=== PATIENT | male | born 1950 | race Caucasian/White ===

== ENCOUNTER → 2019-01-07 | Outpatient (CLI) | payer MEDICARE, OTHER ==
--- NOTE | 2019-01-07 10:52 | RAD ---
Examination: CT LOW DOSE LUNG SCREENING History: Lung nodule Comparison/Correlation: 03/06/2016 CT chest without contrast and 09/18/2016 CT chest without contrast Findings: Axial images of chest were obtained without contrast according to low-dose protocol. Sagittal and coronal reformatted images were provided. Tracheal bronchial tree is most unremarkable. There is circumferential wall thickening of some of the lower lobe bronchi compatible with chronic bronchitis. Small groundglass opacity is present at the lateral right upper lung field on axial image 19 and this measures 1.1 cm x 0.8 cm x 0.3 cm longitudinal. At the left upper lung field, there is a 1.4 cm by 1 cm x 1 cm longitudinal groundglass opacity and this is best seen on axial image 21. There is a 0.4 cm diameter noncalcified nodule on axial image 19 at the left upper lung field level. Few scattered groundglass infiltrates involving the left upper lobe at the mid thoracic level are present. At the mid thoracic level within the left lower lobe, there is a 0.5 cm diameter groundglass opacity. It is best seen on axial image 34. No enlarged thoracic lymph nodes. Significant coronary arterial calcium patient is present involving the proximal left anterior descending and proximal left circumflex arteries. Calcific involvement of the right coronary artery noted. Cholecystectomy noted. Fluid is noted to distend the stomach. No acute bony process. Impression: Lungs rads category 3-probably benign. Multiple new infiltrates are present. Small nodule at the left upper lung field noted. These likely represent a benign infectious process. Interval follow-up in 6 months or sooner may be performed if clinically warranted for further assessment. PQRS Compliance Statement: One or more of the following individualized dose reduction techniques were utilized for this examination: 1. Automated exposure control 2. Adjustment of the mA and/or kV according to patient size 3. Use of iterative reconstruction technique Electronically signed by: Rony Anderson MD (01/07/2019 10:49 AM) [id number]
== END | disposition home or self-care (01) ==
LOC: CT 09:00
PROVIDERS: ATTEND Family Medicine
DX: Z12.2 Encounter for screening for malignant neoplasm of respiratory organs (principal); R91.8 Other nonspecific abnormal finding of lung field; R91.1 Solitary pulmonary nodule; Z90.49 Acquired absence of other specified parts of digestive tract; Z87.891 Personal history of nicotine dependence
CPT/HCPCS: G0297

== ENCOUNTER → 2019-08-09 | Outpatient (CLI) | payer MEDICARE, OTHER ==
--- NOTE | 2019-08-09 16:53 | RAD ---
CT chest without contrast History:, None provided, Technique: Computed tomographic images of thorax were performed. No IV contrast administered: PQRS Compliance Statement: One or more of the following individualized dose reduction techniques were utilized for this examination: 1. Automated exposure control 2. Adjustment of the mA and/or kV according to patient size 3. Use of iterative reconstruction technique Comparison: September 18, 2016 FINDINGS: Visualized thyroid gland unremarkable Mediastinal and thoracic lymph nodes are nonpathologic in size. Gallbladder surgically absent. Severe stool attention in the visualized colon of the upper abdomen. There is to be several tiny intraparenchymal calcifications of both kidneys. No effusions. Coronary artery disease is again noted. Emphysematous changes are seen primarily in the upper lobes bilateral. Calcified granuloma in the left lower lobe is again seen. Nodular scarring in the apices greater on the right is stable. A triangular-shaped nodule ius seen in the right middle lobe this remains stable. IMPRESSION: No acute findings. Emphysematous changes and calcified and solid pulmonary nodules are stable Electronically signed by: Hamlet Jj MD (08/09/2019 4:49 PM) [id number]
== END | disposition home or self-care (01) ==
LOC: CT 08:43
PROVIDERS: ATTEND Family Medicine
DX: R91.8 Other nonspecific abnormal finding of lung field (principal); J43.8 Other emphysema
CPT/HCPCS: 71250

== ENCOUNTER → 2021-02-22 | Outpatient (CLI) | payer MEDICARE, OTHER ==
--- NOTE | 2021-02-22 09:53 | RAD ---
EXAM: CT CHEST WITHOUT CONTRAST (LDCT LUNG CANCER SCREENING). HISTORY: Follow-up pulmonary nodules. TECHNIQUE: CT of the chest was performed without intravenous contrast using a low-dose lung screening protocol. Findings analysis is based on ACR Lung-RADS v1.1. *One or more of the following individual ized dose reduction techniques were utilized for this examination: 1. Automated exposure control. 2. Adjustment of the mA and/or kV according to patient size. 3. Use of iterative reconstruction technique. RADIATION DOSE: DLP: 90.1 mGy*cm CTDI VOL(per sequence): 2.41 mGy COMPARISON: Most recently on 08/09/2019. FINDINGS: Nodules: No significant new nodule or enlargement of pre-existing nodules. 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 Other findings: Emphysema. Left lower lobe granuloma. Calcific atherosclerosis to include trivessel coronary artery i nvolvement. Surgically absent gallbladder. Redemonstration of advanced degenerative changes at C6-C7 and C7-T1. Unchanged ovoid nodular focus within the subcutaneous tissues of the left lateral chest, i mage 252 series 5, typical of a sebaceous cyst. IMPRESSION/RECOMMENDATION: 1. ACR Lung-RADS category: 2 2. Continue annual screening with LDCT in 12 months. 3. Unchanged chronic observations described in the body of the report. Electronically signed by: MALI MESSER MD (02/22/2021 9:51 AM) [facility]
== END ==
LOC: CT 08:45
PROVIDERS: ATTEND Family Medicine
DX: Z12.2 Encounter for screening for malignant neoplasm of respiratory organs (principal); R91.1 Solitary pulmonary nodule; J43.9 Emphysema, unspecified; J84.10 Pulmonary fibrosis, unspecified; L72.3 Sebaceous cyst; I25.10 Atherosclerotic heart disease of native coronary artery without angina pectoris; M47.813 Spondylosis without myelopathy or radiculopathy, cervicothoracic region; Z87.891 Personal history of nicotine dependence
CPT/HCPCS: 71271